=== PATIENT | male | born 1945 | race Caucasian/White ===

== ENCOUNTER 2024-08-08 15:48 | Inpatient (IN) | payer MEDICARE, OTHER ==
[~2024-08-08] VITALS: Ht 172.7 cm; Wt 63.5 kg
[2024-08-08] MEDS ORDERED: SENN-261 PO (16:24)
[2024-08-08] MEDS ORDERED: CARV12.52 PO (16:24)
[2024-08-08] MEDS ORDERED: MULT-213 PO (16:24)
[2024-08-08] MEDS ORDERED: ASCO500C18 PO (16:24)
[2024-08-08] MEDS ORDERED: MAGN400O6 PO (16:24)
[2024-08-08] MEDS ORDERED: NA P133E RC (16:24)
[2024-08-08] MEDS ORDERED: HYDR-894 PO (16:24)
[2024-08-08] MEDS ORDERED: ASPI81TA31 PO (16:24)
[2024-08-08] MEDS ORDERED: CLOP75TA15 PO (16:24)
[2024-08-08] MEDS ORDERED: DOCU100C36 PO (16:24)
[2024-08-08] MEDS ORDERED: FURO20TA4 PO (16:24)
[2024-08-08] MEDS ORDERED: AMLO-212 PO (16:24)
[2024-08-08] MEDS ORDERED: DAPA10TA PO (16:24)
[2024-08-08] MEDS ORDERED: GLUC1KIT IM (16:24)
[2024-08-08] MEDS ORDERED: SACU1TAB PO (16:24)
[2024-08-08] MEDS ORDERED: BISA10SU61 RC (16:24)
[2024-08-08] MEDS ORDERED: INSU100I26 SQ (16:24)
[2024-08-08] MEDS ORDERED: ATOR40TA PO (16:24)
[2024-08-08] MEDS ORDERED: METF-442 PO (16:24)
[2024-08-08] MEDS ORDERED: INSU100V39 SQ (16:24)
[2024-08-08 17:23] LABS: BASOPHILS % (AUTO) 0.6 % (0.0-2.0); EOSINOPHILS # (AUTO) 0.4 K/uL (0.0-0.7); EOSINOPHILS % (AUTO) 4.2 % (0.0-7.0); HEMATOCRIT 41.7 % (36.7-47.1); HEMOGLOBIN 14.1 g/dL (12.5-16.3); LYMPHOCYTES # (AUTO) 1.3 K/uL (0.8-4.8); MEAN CORPUSCULAR HEMOGLOBIN 30.8 uug (23.8-33.4); MEAN CORPUSCULAR HGB CONC 34 g/dL (32.5-36.3); MEAN CORPUSCULAR VOLUME 90.7 fL (73.0-96.2); MONOCYTES # (AUTO) 0.4 K/uL (0.1-1.30); MONOCYTES % (AUTO) 4.8 % (0.0-11.0); NEUTROPHILS # (AUTO) 6.8 K/uL (1.8-8.9); NEUTROPHILS % (AUTO) 75.4 % (38.5-71.5); PLATELET COUNT (AUTO) 251 K/uL (152-348); RED CELL DISTRIBUTION WIDTH 15.4 % (12.1-16.2); WHITE BLOOD COUNT (AUTO) 8.9 K/uL (3.6-10.2)
[2024-08-08 17:26] LABS: DIFFERENTIAL COMMENT 1
[2024-08-08 17:31] LABS: CALCIUM 8.7 mg/dL (8.5-10.1); CARBON DIOXIDE 28 mmol/L (21-32); CHLORIDE 110 mmol/L (98-107); CREATININE 0.7 mg/dL (0.6-1.3); GLUCOSE 185 mg/dL (74-106); MAGNESIUM 1.5 mg/dL (1.8-2.4); POTASSIUM 3.5 mmol/L (3.5-5.1); SODIUM SERUM 145 mmol/L (136-145); UREA NITROGEN, BLOOD 26 mg/dL (7-18)
[2024-08-08 17:38] LABS: ALANINE AMINOTRANSFERASE 26 U/L (16-63); ALBUMIN 2.7 g/dL (3.4-5.0); ALKALINE PHOSPHATASE 53 U/L (50-136); ASPARTATE AMINOTRANSFERASE 15 U/L (15-37); BILIRUBIN,DIRECT 0.2 mg/dL (0.0-0.2); BILIRUBIN,TOTAL 0.6 mg/dL (0.2-1.0); TOTAL PROTEIN, SERUM 5.6 g/dL (6.4-8.2)
[2024-08-08 17:45] LABS: THYROID STIMULATING HORMONE 1.575 mIU/mL (0.358-3.740)
[2024-08-08] MEDS: MAGNESIUM SULFATE/D5W 100 ML IV SCH (18:47)
[2024-08-08] MEDS ORDERED: MAGNESIUM SULFATE/D5W 300 ML ONE (18:48)
[2024-08-08] MEDS ORDERED: QUETIAPINE FUMARATE 25 MG TABLET PO SCH (23:30)
[2024-08-08] MEDS ORDERED: QUETIAPINE FUMARATE 25 MG TABLET PO PRN (23:30)
[2024-08-08] MEDS ORDERED: MAG HYDROX/AL HYDROX/SIMETH 30 ML LIQUID UDC PO PRN (23:30)
[2024-08-08] MEDS ORDERED: ZOLPIDEM 5 MG TABLET PO PRN ×2 (23:30)
[2024-08-08] MEDS ORDERED: ACETAMINOPHEN 325 MG TABLET PO PRN (23:30)
[2024-08-08] MEDS ORDERED: MAGNESIUM HYDROXIDE 30 ML LIQUID UDC PO PRN (23:30)
[2024-08-08 23:45] VITALS: BP 148/67; TEMP 98; O2SAT 96
[2024-08-08] MEDS: BLOOD SUGAR DIAGNOSTIC 1 EACH STRIP VI ONE (23:55)
[2024-08-09 07:41] VITALS: BP 135/57; TEMP 98; O2SAT 98
[2024-08-09] MEDS ORDERED: BISA10SU95 RC (08:48)
[2024-08-09] MEDS ORDERED: FLEET ENEMA 133 ML BOTTLE RC PRN (13:45)
[2024-08-09] MEDS ORDERED: MAGNESIUM HYDROXIDE 30 ML LIQUID UDC PO PRN (13:45)
[2024-08-09] MEDS ORDERED: BISACODYL 10 MG SUPP.RECT RC PRN (13:45)
[2024-08-09] MEDS ORDERED: DEXTROSE 50% 50 ML DISP.SYRIN IV PRN (13:45)
[2024-08-09] MEDS ORDERED: hydrALAZINE HCL 25 MG TABLET PO PRN (13:45)
[2024-08-09] MEDS: ASPIRIN 81 MG TAB.CHEW PO SCH (15:25)
[2024-08-09] MEDS: CLOPIDOGREL 75 MG TABLET PO SCH (15:25)
[2024-08-09] MEDS: AMLODIPINE 5 MG TABLET PO SCH (15:26)
[2024-08-09] MEDS: FUROSEMIDE 20 MG TABLET PO SCH (15:26)
[2024-08-09] MEDS: BLOOD SUGAR DIAGNOSTIC 1 EACH STRIP VI SCH (16:38)
[2024-08-09] MEDS: INSULIN REGULAR, HUMAN 1000 UNIT/10 ML VIAL SQ PRN (16:41)
[2024-08-09] MEDS: SENNOSIDES 1 TABLET PO SCH (17:03)
[2024-08-09] MEDS: VALSARTAN 80 MG TABLET PO SCH (17:03)
[2024-08-09] MEDS: DOCUSATE SODIUM 100 MG CAPSULE PO SCH (17:03)
[2024-08-09] MEDS: CARVEDILOL 12.5 MG TABLET PO SCH (17:04)
[2024-08-09] MEDS: DAPAGLIFLOZIN PROPANEDIOL 10 MG TABLET PO SCH (17:06)
[2024-08-09] MEDS: METFORMIN HCL 500 MG TABLET PO SCH (17:49)
[2024-08-09 20:00] VITALS: BP 134/96; TEMP 98.7; O2SAT 94
[2024-08-09] MEDS: INSULIN GLARGINE,HUM 300 UNITS/3 ML CARTRIDGE SQ SCH (21:00)
[2024-08-09] MEDS: ATORVASTATIN 40 MG TABLET PO SCH (21:34)
[2024-08-09] MEDS: MIRTAZAPINE 15 MG TABLET PO SCH (21:34)
[2024-08-10 07:33] VITALS: BP 165/76; TEMP 97.2; O2SAT 97
[2024-08-10] MEDS: MULTIVIT, IRON, MIN NO. 8, FA TABLET PO SCH (08:46)
[2024-08-10 16:00] VITALS: BP 156/72; TEMP 97.6; O2SAT 97
[2024-08-10 19:59] VITALS: BP 143/69; TEMP 97.8; O2SAT 98
[2024-08-10] MEDS: QUETIAPINE FUMARATE 25 MG TABLET PO SCH (20:37)
[2024-08-11 07:28] VITALS: BP 119/58; TEMP 98; O2SAT 98
[2024-08-11] MEDS: MUPIROCIN 2% OINT 22 GM TUBE NS SCH (10:01)
[2024-08-11 16:32] VITALS: BP 165/78; TEMP 98; O2SAT 94
[2024-08-11 20:00] VITALS: BP 162/76; TEMP 98; O2SAT 96
[2024-08-12 08:02] VITALS: BP 125/57; TEMP 98; O2SAT 93
[2024-08-12] MEDS: GLUCERNA SHAKE 237 ML CAN PO SCH (08:31)
[2024-08-12 16:16] VITALS: BP 109/85; TEMP 98.3; O2SAT 95
[2024-08-12 20:00] VITALS: BP 132/64; TEMP 99; O2SAT 94
[2024-08-13 07:46] VITALS: BP 132/69; TEMP 98; O2SAT 98
[2024-08-13 15:15] VITALS: BP 150/76; TEMP 98; O2SAT 94
[2024-08-13 20:00] VITALS: BP 138/75; TEMP 98.4; O2SAT 95
[2024-08-14 07:42] VITALS: BP 90/48; TEMP 98; O2SAT 98
[2024-08-14 15:55] VITALS: BP 107/73; TEMP 98; O2SAT 96
[2024-08-14 19:44] VITALS: BP 133/67; TEMP 97.9; O2SAT 97
[2024-08-15 08:02] VITALS: BP 138/75; TEMP 98.5; O2SAT 96
[2024-08-15 16:31] VITALS: BP 128/65; TEMP 97.9; O2SAT 98
[2024-08-15 20:43] VITALS: BP 121/67; TEMP 98; O2SAT 96
[2024-08-16 06:00] VITALS: BP 121/62; TEMP 98.1; O2SAT 99
[2024-08-16] MEDS: BLOOD SUGAR DIAGNOSTIC 1 EACH STRIP VI SCH (06:31)
[2024-08-16 08:06] VITALS: BP 130/101; TEMP 98.1; O2SAT 98
[2024-08-16 16:48] VITALS: BP 127/60; TEMP 97.9; O2SAT 96
[2024-08-16] MEDS: REMEDY ESSENTIAL ZINC PASTE 113 GM TOP PRN (17:05)
[2024-08-16 19:49] VITALS: BP 161/85; TEMP 98.9; O2SAT 95
[2024-08-17 08:21] VITALS: BP 149/85; TEMP 98; O2SAT 94
[2024-08-17 15:43] VITALS: BP 136/81; TEMP 98; O2SAT 94
[2024-08-17 20:51] VITALS: BP 125/63; TEMP 98.2; O2SAT 95
[2024-08-18 08:07] VITALS: BP 120/85; TEMP 98.5; O2SAT 98
[2024-08-18] MEDS: AMLODIPINE 10 MG TABLET PO SCH (08:23)
[2024-08-18 08:41] LABS: BASOPHILS % (AUTO) 0.3 % (0.0-2.0); EOSINOPHILS # (AUTO) 0.3 K/uL (0.0-0.7); EOSINOPHILS % (AUTO) 3.5 % (0.0-7.0); HEMATOCRIT 39.2 % (36.7-47.1); HEMOGLOBIN 13.2 g/dL (12.5-16.3); LYMPHOCYTES # (AUTO) 1.5 K/uL (0.8-4.8); LYMPHOCYTES % (AUTO) 17.4 % (20.5-51.5); MEAN CORPUSCULAR HEMOGLOBIN 30.9 uug (23.8-33.4); MEAN CORPUSCULAR HGB CONC 34 g/dL (32.5-36.3); MEAN CORPUSCULAR VOLUME 91.9 fL (73.0-96.2); MONOCYTES # (AUTO) 0.7 K/uL (0.1-1.30); MONOCYTES % (AUTO) 8.5 % (0.0-11.0); NEUTROPHILS # (AUTO) 6.2 K/uL (1.8-8.9); NEUTROPHILS % (AUTO) 70.3 % (38.5-71.5); PLATELET COUNT (AUTO) 222 K/uL (152-348); RED BLOOD CELL COUNT(AUTO) 4.26 MIL/uL (4.06-5.63); RED CELL DISTRIBUTION WIDTH 16.2 % (12.1-16.2); WHITE BLOOD COUNT (AUTO) 8.8 K/uL (3.6-10.2)
[2024-08-18] MEDS ORDERED: AMLODIPINE 5 MG TABLET PO SCH (09:00)
[2024-08-18 09:02] LABS: DIFFERENTIAL COMMENT 1
[2024-08-18 09:04] LABS: CALCIUM 8.5 mg/dL (8.5-10.1); CARBON DIOXIDE 26 mmol/L (21-32); CHLORIDE 110 mmol/L (98-107); CREATININE 0.7 mg/dL (0.6-1.3); GLUCOSE 82 mg/dL (74-106); SODIUM SERUM 146 mmol/L (136-145); UREA NITROGEN, BLOOD 28 mg/dL (7-18)
[2024-08-18 19:30] VITALS: BP 132/61; TEMP 98.6; O2SAT 99
[2024-08-18] MEDS: ATORVASTATIN 10 MG TABLET PO SCH (20:14)
[2024-08-18] MEDS: POTASSIUM CHLORIDE 20 MEQ TAB.PRT.SR PO ONE (20:14)
[2024-08-19] MEDS: PANTOPRAZOLE SODIUM 40 MG TABLET.DR PO SCH (06:05)
[2024-08-19 08:03] VITALS: BP 158/71; TEMP 98; O2SAT 97
[2024-08-19] MEDS: ASPIRIN EC 81 MG TABLET.DR PO SCH (08:43)
[2024-08-19] MEDS: CYANOCOBALAMIN 1,000 MCG TABLET PO SCH (08:44)
[2024-08-19 16:20] VITALS: BP 148/67; TEMP 98.3; O2SAT 97
[2024-08-19] MEDS: GABAPENTIN 100 MG CAPSULE PO SCH (16:46)
[2024-08-19 20:00] VITALS: BP 119/53; TEMP 98.9; O2SAT 94
[2024-08-20 08:05] VITALS: BP 130/61; TEMP 98; O2SAT 98
[2024-08-20 08:45] LABS: BASOPHILS % (AUTO) 0.5 % (0.0-2.0); EOSINOPHILS # (AUTO) 0.3 K/uL (0.0-0.7); EOSINOPHILS % (AUTO) 3.5 % (0.0-7.0); HEMOGLOBIN 13.1 g/dL (12.5-16.3); LYMPHOCYTES # (AUTO) 1.5 K/uL (0.8-4.8); LYMPHOCYTES % (AUTO) 19.4 % (20.5-51.5); MEAN CORPUSCULAR HGB CONC 34 g/dL (32.5-36.3); MONOCYTES # (AUTO) 0.7 K/uL (0.1-1.30); NEUTROPHILS # (AUTO) 5.1 K/uL (1.8-8.9); NEUTROPHILS % (AUTO) 67.6 % (38.5-71.5); PLATELET COUNT (AUTO) 189 K/uL (152-348); RED BLOOD CELL COUNT(AUTO) 4.24 MIL/uL (4.06-5.63); RED CELL DISTRIBUTION WIDTH 16.5 % (12.1-16.2); WHITE BLOOD COUNT (AUTO) 7.5 K/uL (3.6-10.2)
[2024-08-20 10:01] LABS: DIFFERENTIAL COMMENT 1
[2024-08-20 10:41] LABS: CALCIUM 8.6 mg/dL (8.5-10.1); CARBON DIOXIDE 27 mmol/L (21-32); CHLORIDE 111 mmol/L (98-107); CREATININE 0.6 mg/dL (0.6-1.3); GLUCOSE 76 mg/dL (74-106); MAGNESIUM 1.7 mg/dL (1.8-2.4); PHOSPHOROUS 3.1 mg/dL (2.5-4.9); POTASSIUM 3.6 mmol/L (3.5-5.1); SODIUM SERUM 145 mmol/L (136-145); UREA NITROGEN, BLOOD 21 mg/dL (7-18)
[2024-08-20] MEDS: MAGNESIUM OXIDE 400 MG TABLET PO ONE (12:49)
[2024-08-20 16:02] VITALS: BP 101/59; TEMP 98; O2SAT 98
[2024-08-20 19:51] VITALS: BP 131/58; TEMP 98.9; O2SAT 95
[2024-08-21 07:48] VITALS: BP 147/71; TEMP 98; O2SAT 94
[2024-08-21 08:55] VITALS: BP 147/71
== END 2024-08-21 15:00 | DRG 885 ==
LOC: ER 15:48 → GPS 23:15
PROVIDERS: ADMIT Psychiatry & Neurology Psychiatry
DX: F33.9 Major depressive disorder, recurrent, unspecified (principal); I11.0 Hypertensive heart disease with heart failure; I69.354 Hemiplegia and hemiparesis following cerebral infarction affecting left non-dominant side; E44.0 Moderate protein-calorie malnutrition; I42.9 Cardiomyopathy, unspecified; E87.0 Hyperosmolality and hypernatremia; Z87.891 Personal history of nicotine dependence; J44.9 Chronic obstructive pulmonary disease, unspecified; E88.09 Other disorders of plasma-protein metabolism, not elsewhere classified; Z22.322 Carrier or suspected carrier of Methicillin resistant Staphylococcus aureus; I50.9 Heart failure, unspecified; E87.6 Hypokalemia; I25.10 Atherosclerotic heart disease of native coronary artery without angina pectoris; I25.2 Old myocardial infarction; Z79.02 Long term (current) use of antithrombotics/antiplatelets; Z79.899 Other long term (current) drug therapy; E11.9 Type 2 diabetes mellitus without complications; Z79.82 Long term (current) use of aspirin; Z79.4 Long term (current) use of insulin; Z79.84 Long term (current) use of oral hypoglycemic drugs; E83.42 Hypomagnesemia; E78.5 Hyperlipidemia, unspecified; R41.9 Unspecified symptoms and signs involving cognitive functions and awareness; F50.89 Other specified eating disorder
CPT/HCPCS: 36415; 83735; 84100; 84443; 85025; A4606; A4663; J1815; J3475